=== PATIENT | female | born 1975 | race Caucasian/White ===

== ENCOUNTER → 2019-07-04 | Outpatient (CLI) | payer BC | LOC: M LABSMTC 12:29 | PROVIDERS: ATTEND Family Medicine | DX: Z11.59 Encounter for screening for other viral diseases (principal); Z20.828 Contact with and (suspected) exposure to other viral communicable diseases | CPT/HCPCS: 87502; U0002 ==

== ENCOUNTER 2020-01-22 07:30 | Outpatient (RCR) | payer BC | END 2020-02-08 | LOC: M OT 07:30 | PROVIDERS: ATTEND Physician Assistant Surgical | DX: S60.031A Contusion of right middle finger without damage to nail, initial encounter (principal) ==

== ENCOUNTER → 2020-01-23 | Outpatient (CLI) | payer SELFPAY | LOC: M LABSMTC 14:31 | PROVIDERS: ATTEND Pediatrics | DX: Z20.828 Contact with and (suspected) exposure to other viral communicable diseases (principal) ==

== ENCOUNTER → 2020-01-27 | Outpatient (CLI) | payer BC, SELFPAY | LOC: M LABSMTC 10:28 | PROVIDERS: ATTEND Family Medicine | DX: Z20.828 Contact with and (suspected) exposure to other viral communicable diseases (principal) | CPT/HCPCS: C9803; U0003 ==

== ENCOUNTER 2020-02-21 03:31 | Emergency (ER) | payer BC ==
[~2020-02-21] VITALS: Ht 177.8 cm; Wt 83.5 kg
[2020-02-21] MEDS ORDERED: PRAZ5CAP PO (03:41)
[2020-02-21] MEDS ORDERED: CYMB60CA3 PO (03:41)
[2020-02-21] MEDS ORDERED: OMEP40CA97 PO (03:41)
[2020-02-21] MEDS ORDERED: VYVA70CA3 PO (03:41)
[2020-02-21] MEDS ORDERED: MORPHINE 4 MG/ML 1ML VIAL/SYRINGE (J2270) IV PRN (04:30)
[2020-02-21] MEDS ORDERED: ONDANSETRON 4MG/2ML VIAL IV ONE (04:30)
[2020-02-21 04:41] LABS: BASO % 0.6 % (0.0-1.0); EOS # 0.1 10^3/uL (0.0-0.5); EOS % 1.2 % (0.0-3.0); HEMATOCRIT 40.8 % (36.0-47.0); LYMPH # 2.3 10^3/uL (1.5-5.0); LYMPH % 31.2 % (24.0-44.0); MEAN CORPUSCULAR HEMOGLOBIN 30.7 pg (27.0-33.0); MEAN CORPUSCULAR HGB CONC 31.9 g/dl (32.0-36.5); MEAN CORPUSCULAR VOLUME 96.5 fl (80.0-96.0); MONO # 0.7 10^3/uL (0.0-0.8); MONO % 9.8 % (0.0-5.0); NEUTROPHILS # 4.1 10^3/uL (1.5-8.5); NEUTROPHILS % 56.8 % (36.0-66.0); PLATELET COUNT, AUTOMATED 263 10^3/uL (150-450); RED BLOOD COUNT 4.23 10^6/uL (4.00-5.40); WHITE BLOOD COUNT 7.3 10^3/uL (4.0-10.0)
[2020-02-21 04:50] LABS: ALBUMIN 3.7 GM/DL (3.2-5.2); ALT/SGPT 38 U/L (12-78); BILIRUBIN,DIRECT 0.1 MG/DL (0.0-0.2); BILIRUBIN,TOTAL 0.5 MG/DL (0.2-1.0); CK-MB VALUE MASS < 1.0 NG/ML (<3.6); CPK CREATINE PHOSPHOKINASE 97 U/L (26-192); LIPASE 128 U/L (73-393); MB/CK RELATIVE INDEX 1.03 (< OR =4); TOTAL PROTEIN 7.9 GM/DL (6.4-8.2); TROPONIN I < 0.02 NG/ML (< 0.10)
[2020-02-21] MEDS ORDERED: ISOVUE-370 76% 100ML VIAL As Ordered ONE (05:40)
--- NOTE | 2020-02-21 06:49 | REPVR ---
PROCEDURE INFORMATION: Exam: CT Abdomen And Pelvis With Contrast Exam date and time: 02/21/2020 5:38 AM Age: 45 years old Clinical indication: Abdominal pain; Localized; Right lower quadrant (rlq); Additional info: Rlq abd pain TECHNIQUE: Imaging protocol: Computed tomography of the abdomen and pelvis with intravenous contrast. Radiation optimization: All CT scans at this facility use at least one of these dose optimization techniques: automated exposure control; mA and/or kV adjustment per patient size (includes targeted exams where dose is matched to clinical indication); or iterative reconstruction. Contrast material: ISO; Contrast volume: 100 ml; Contrast route: INTRAVENOUS (IV); COMPARISON: No relevant prior studies available. FINDINGS: Liver: Hepatomegaly longitudinally measuring 20.0 cm. Gallbladder and bile ducts: Cholecystectomy. Pancreas: Hypodense area in the distal pancreas at the junction of body and tail measures 1.2 by 1.6 cm. Spleen: Normal. No splenomegaly. Adrenal glands: Normal. No mass. Kidneys and ureters: Normal. No hydronephrosis. Stomach and bowel: Moderate stool and gas throughout the colon. The stomach is nondistended. Partial fluid-filled small bowel without extreme dilatation. Left adnexal cystic structure versus focal fluid expanded bowel in the left pelvis measuring 3.0 cm. Appendix: No evidence of appendicitis. Intraperitoneal space: Small amount of free fluid in the low pelvis on the right. Vasculature: Unremarkable. No abdominal aortic aneurysm. Lymph nodes: Unremarkable. No enlarged lymph nodes. Urinary bladder: Superior bladder wall is mildly or borderline thickened measuring 0.7 cm with limited bladder distension. Reproductive: Likely prior surgical hysterectomy. Possible accentuation area of vaginal cuff site partially contiguous with adjacent unopacified bowel. Bones/joints: Unremarkable. No acute fracture. Soft tissues: Unremarkable. IMPRESSION: 1. Hypodense lesion distal pancreas. Further evaluation with multiphase CT pancreatic protocol recommended. 2. Fluid-filled small bowel which may indicate enteritis or ileus. 3. Accentuation of the bladder wall which could be on the basis of nondistention or cystitis. 4. Small amount of nonspecific fluid in the pelvis. 5. 3.0 by 4.5 cm cm left pelvic structure suspicious for mild enlargement of the left ovary. Probable less prominent right ovary is significantly obscured by adjacent bowel gas.. 6. Accentuated soft tissues at a presumed operative vaginal cuff site related to hysterectomy. 7. Hepatomegaly. Electronically signed by: Leonor Cuevas On 02/21/2020 06:48:33 AM
[2020-02-21] MEDS ORDERED: PERCOCET 5MG/325MG TAB PO ONE (07:00)
[2020-02-21] MEDS ORDERED: ONDA4TAB6 PO (07:03)
[2020-02-21] MEDS ORDERED: PERC5TAB12 PO ×2 (07:03→10:19)
[2020-02-21 07:12] VITALS: BP 146/86
--- NOTE | 2020-02-24 10:34 | ED PDOC ---
Post-Departure Follow-Up certitied letter sent to pt re formal read of ct abd/p. who did pt establish w a s pcp. obtain name and fax to that pcp. if none yet refer to [facility] and fax there. Justin South MD Feb 24, 2020 10:34
== END 2020-02-21 07:20 | disposition home or self-care (01) ==
LOC: M ED 03:31
DX: K52.9 Noninfective gastroenteritis and colitis, unspecified (principal); R93.3 Abnormal findings on diagnostic imaging of other parts of digestive tract; R16.0 Hepatomegaly, not elsewhere classified; K21.9 Gastro-esophageal reflux disease without esophagitis; F17.200 Nicotine dependence, unspecified, uncomplicated; Z88.8 Allergy status to other drugs, medicaments and biological substances; Z91.018 Allergy to other foods; Z91.030 Bee allergy status
CPT/HCPCS: 74177; 80047; 80076; 81001; 82550; 82553; 83690; 84484; 85025; 87088; 87186; 93041; 96374; 99285; J2270; J2405; Q9967

== ENCOUNTER → 2020-03-17 | Outpatient (CLI) | payer SELFPAY ==
[~2020-03-17] MED LIST: CYMB60CA3 PO; OMEP40CA97 PO; ONDA4TAB6 PO; PERC5TAB12 PO; PRAZ5CAP PO; VYVA70CA3 PO
== END ==
LOC: M LABSMTC 18:56
PROVIDERS: ATTEND Pediatrics
DX: Z11.59 Encounter for screening for other viral diseases (principal)

== ENCOUNTER → 2020-07-29 | Outpatient (CLI) | payer BC | LOC: M LABSMTC 09:41 | DX: Z20.822 Contact with and (suspected) exposure to COVID-19 (principal) ==

== ENCOUNTER 2020-08-21 11:34 | Emergency (ER) | payer BC ==
[~2020-08-21] VITALS: Ht 177.8 cm; Wt 81.8 kg
[2020-08-21] MEDS ORDERED: TRAM50TA2 (11:44)
[2020-08-21 12:34] LABS: HEMATOCRIT 44.1 % (36.0-47.0); HEMOGLOBIN 14.7 g/dl (12.0-15.5); MEAN CORPUSCULAR HEMOGLOBIN 31.7 pg (27.0-33.0); MEAN CORPUSCULAR HGB CONC 33.3 g/dl (32.0-36.5); PLATELET COUNT, AUTOMATED 288 10^3/uL (150-450); RED BLOOD COUNT 4.64 10^6/uL (4.00-5.40)
[2020-08-21 12:51] LABS: WHITE BLOOD COUNT 29.2 10^3/uL (4.0-10.0)
[2020-08-21 12:55] LABS: ATYPICAL LYMPH 2 % (0-5); LYMPHOCYTES 2 % (16-44); METAMYELOCYTES 1 % (0-0); MONOCYTES 14 % (0-5); NEUTROPHILS 61 % (28-66); PLATELET ESTIMATE NORMAL (NORMAL)
[2020-08-21 12:59] LABS: ERYTHROCYTE SEDIMENTATION RATE 6 mm/hr (0-20)
[2020-08-21] MEDS ORDERED: KETOROLAC 30 MG/ML 1ML VIAL IV ONE (13:25)
[2020-08-21] MEDS ORDERED: NS 1,000 ML IV ONE (13:25)
[2020-08-21] MEDS ORDERED: ONDANSETRON 4MG/2ML VIAL IV ONE (13:25)
[2020-08-21] MEDS ORDERED: ISOVUE-370 76% 100ML VIAL As Ordered ONE (13:45)
[2020-08-21] MEDS ORDERED: MORPHINE 4 MG/ML 1ML VIAL/SYRINGE (J2270) IV ONE ×2 (13:50→15:45)
--- NOTE | 2020-08-21 14:43 | REP ---
INDICATION: abscess of chest COMPARISON: None. TECHNIQUE: Standard helical technique the chest was obtained after the intravenous administration of 100 cc Isovue 370. FINDINGS: Seen near circumferential to the left breast implant there is abnormal mixed particularly low-density and soft tissue thickening consistent with edematous tissue. This continues superiorly beyond the confines of the breast implant along the anterior left chest wall almost to the level of the clavi pectoral fascia. There is no abnormal concomitant air density. There is no evidence of intrathoracic invasion. The integrity of the implant cannot be accurately commented on by CT. There is no evidence of mediastinal, hilar, or axillary adenopathy. There is no evidence of adenopathy in the imaged neck root. There are no pleural or pericardial effusions. The imaged upper abdomen shows a small focal area of abnormal mixed predominantly decreased density in the pancreatic body/tail which was imaged on the prior CT scan of the abdomen of 02/21/2020 which was reviewed. The imaged osseous structures are within normal limits. Evaluation of the lung thornton shows minimal biapical pleuroparenchymal scarring. The lung thornton are otherwise clear. IMPRESSION: 1. Left anterior chest wall finding, as described above, consistent with inflammation/infection/early abscess formation. 2. Persistent finding in the pancreas as described above and for which pre and post gadolinium enhanced pancreatic MRI is recommended. 3. There is mild biapical pleuroparenchymal scarring with no prior chest CTs for comparison. There is no revised Fleischner society criteria on the recommendation for follow-up of this finding. Six-month follow-up chest CT is suggested. 4. Other findings as described above. <Electronically signed by Neri Kendall > 08/21/20 [id number]
[2020-08-21] MEDS ORDERED: VANCOMYCIN HCL 1,750 MG in IV FLUID PLACE HOLDER 1 EA IV ONE (15:25)
[2020-08-21] MEDS ORDERED: VANCOMYCIN HCL 1,000 MG, VIAL MATE ADAPTER 1 EACH in NS 250 ML IV ONE (16:00)
[2020-08-21] MEDS ORDERED: VANCOMYCIN HCL 750 MG, VIAL MATE ADAPTER 1 EACH in NS 250 ML IV ONE (17:00)
[2020-08-21] MEDS ORDERED: PERCOCET 5MG/325MG TAB PO ONE (17:15)
[2020-08-21] MEDS ORDERED: diphenhydrAMINE 25MG CAP PO ONE (20:10)
[2020-08-21 20:52] VITALS: BP 113/66
== END 2020-08-21 20:57 | disposition short-term general hospital (02) ==
LOC: M ED 11:34
DX: G89.18 Other acute postprocedural pain (principal); T85.49XA Other mechanical complication of breast prosthesis and implant, initial encounter; L03.313 Cellulitis of chest wall; K21.9 Gastro-esophageal reflux disease without esophagitis; K58.9 Irritable bowel syndrome, unspecified; Z91.030 Bee allergy status; Z91.018 Allergy to other foods; Z88.8 Allergy status to other drugs, medicaments and biological substances
CPT/HCPCS: 36415; 71260; 80047; 83605; 85025; 85652; 86140; 87040; 87798; 96365; 96366; 96375; 96376; 99284; J1885; J2270; J2405; J3370; Q9967

== ENCOUNTER → 2020-09-15 | Outpatient (CLI) | payer BC ==
[~2020-09-15] MED LIST changes: +TRAM50TA2
[2020-09-15 10:27] LABS: BASO # 0.1 10^3/uL (0.0-0.2); BASO % 1.2 % (0.0-1.0); EOS # 0.1 10^3/uL (0.0-0.5); EOS % 2.8 % (0.0-3.0); HEMATOCRIT 41.3 % (36.0-47.0); HEMOGLOBIN 13.2 g/dl (12.0-15.5); LYMPH # 1.8 10^3/uL (1.5-5.0); LYMPH % 35.6 % (24.0-44.0); MEAN CORPUSCULAR HEMOGLOBIN 29.9 pg (27.0-33.0); MEAN CORPUSCULAR VOLUME 93.7 fl (80.0-96.0); MONO # 0.8 10^3/uL (0.0-0.8); MONO % 14.8 % (2.0-8.0); NEUTROPHILS # 2.3 10^3/uL (1.5-8.5); NEUTROPHILS % 45.2 % (36.0-66.0); PLATELET COUNT, AUTOMATED 388 10^3/uL (150-450); RED BLOOD COUNT 4.41 10^6/uL (4.00-5.40); WHITE BLOOD COUNT 5.1 10^3/uL (4.0-10.0)
[2020-09-15 11:41] LABS: ALBUMIN 3.6 GM/DL (3.2-5.2); ALT/SGPT 25 U/L (12-78); BILIRUBIN,TOTAL 0.4 MG/DL (0.2-1.0); BLOOD UREA NITROGEN 12 MG/DL (7-18); CALCIUM LEVEL 9.5 MG/DL (8.5-10.1); CARBON DIOXIDE LEVEL 30 MEQ/L (21-32); CHLORIDE LEVEL 104 MEQ/L (98-107); CREATININE FOR GFR 0.99 MG/DL (0.55-1.30); GLOMERULAR FILTRATION RATE > 60.0 (>58); GLUCOSE, FASTING 79 MG/DL (70-100); POTASSIUM SERUM 4.4 MEQ/L (3.5-5.1); SODIUM LEVEL 139 MEQ/L (136-145); TOTAL PROTEIN 7.9 GM/DL (6.4-8.2)
== END ==
LOC: M LAB 09:04
DX: N61.1 Abscess of the breast and nipple (principal)